=== PATIENT | male | born 1955 | race Caucasian/White ===

== ENCOUNTER 2023-09-21 08:04 | Day surgery (SDC) | payer BC, MEDICARE ==
[2023-09-21] MEDS ORDERED: Propofol 200 MG/20 ML SDV IV ONE (08:05)
[2023-09-21] MEDS ORDERED: Midazolam 1 MG/ML 2 ML SDV IV ONE (08:05)
[2023-09-21] MEDS ORDERED: Sodium Chloride 0.9% 10 ML Syringe FLUSH PRN (08:15)
[2023-09-21] MEDS: Lactated Ringers 1,000 ML IV SCH (09:05)
[2023-09-21] MEDS: Simethicone Drops 40 MG/0.6 ML 30 ML Bottle PO ONE (10:03)
[2023-09-24 10:52] VITALS: BP 151/89; PULSE 107
== END 2023-09-21 11:20 | disposition home or self-care (01) ==
LOC: FB.SDS 08:04
PROVIDERS: ATTEND Surgery
DX: Z12.11 Encounter for screening for malignant neoplasm of colon (principal); D12.6 Benign neoplasm of colon, unspecified; K63.5 Polyp of colon; K21.9 Gastro-esophageal reflux disease without esophagitis; Z86.010 Personal history of colon polyps; Z80.0 Family history of malignant neoplasm of digestive organs; Z79.899 Other long term (current) drug therapy
CPT/HCPCS: 00811; 88305; A9270-GY; J2250; J2704; J7120